=== PATIENT | female | born 1945 | race Caucasian/White ===

== ENCOUNTER → 2017-11-24 | Outpatient (CLI) | payer MEDICARE, OTHER ==
[~2017-11-24] VITALS: Ht 170.2 cm; Wt 64.1 kg
[~2017-11-24] MED LIST: ASPIRIN 81M81 MG/TA2 PO; ATROVENTNS0.03% NS; CLIMARA 0.1 PATCH.WK PO; DAYPRO 600600 MG PO; EPA FISH OIL1000 MG PO; ESTRACE0.5 MG PO; LUTEIN PO; MULTIPLE VITAMI1 TA5 PO; PHARMASSURE MA500 MG PO; RESTASIS0.05% OU; VITAMIN C500 MG PO
[2017-11-24 13:58] VITALS: BP 149/74; PULSE 63
[2017-11-24 15:20] VITALS: BP 149/83; PULSE 63
== END ==
LOC: COL.RAD 13:07
DX: M51.17 Intervertebral disc disorders with radiculopathy, lumbosacral region (principal)
CPT/HCPCS: J3301

== ENCOUNTER → 2018-03-07 | Outpatient (CLI) | payer MEDICARE, OTHER ==
[~2018-03-07] VITALS: Ht 170.2 cm; Wt 63.2 kg
[2018-03-07 12:06] VITALS: BP 154/68; PULSE 72
[2018-03-07 13:10] VITALS: BP 147/75; PULSE 65
== END ==
LOC: COL.RAD 11:45
DX: M51.16 Intervertebral disc disorders with radiculopathy, lumbar region (principal); M46.96 Unspecified inflammatory spondylopathy, lumbar region; M25.561 Pain in right knee; M25.562 Pain in left knee
CPT/HCPCS: J3301

== ENCOUNTER → 2018-03-24 | Outpatient (CLI) | payer MEDICARE, OTHER ==
[~2018-03-24] VITALS: Ht 167.6 cm; Wt 63.5 kg
[2018-03-24 07:19] VITALS: BP 122/64; PULSE 64
[2018-03-24 09:30] VITALS: BP 147/76; PULSE 65
== END ==
LOC: COL.RAD 07:00
DX: M54.17 Radiculopathy, lumbosacral region (principal); Z79.82 Long term (current) use of aspirin; Z79.899 Other long term (current) drug therapy
CPT/HCPCS: J3301

== ENCOUNTER → 2019-07-05 | Outpatient (CLI) | payer MEDICARE, OTHER ==
[~2019-07-05] VITALS: Ht 167.6 cm; Wt 63.6 kg
[~2019-07-05] MED LIST changes: +LUMIGAN 5 ML5 M1 OP
[2019-07-05 13:04] VITALS: BP 143/69; PULSE 63
[2019-07-05 14:00] VITALS: BP 142/74; PULSE 65
--- NOTE | 2019-07-05 14:27 | NUR ---
PT TAKEN BY WHEELCHAIR TO [facility]. PT'S SPOUSE DROVE CAR UP AND THEY LEFT
== END ==
LOC: COL.RAD 12:30
DX: M54.17 Radiculopathy, lumbosacral region (principal)
CPT/HCPCS: J3301

== ENCOUNTER → 2019-07-30 | Outpatient (CLI) | payer MEDICARE, OTHER ==
[~2019-07-30] VITALS: Ht 167.6 cm; Wt 67.0 kg
[2019-07-30 13:46] VITALS: BP 145/68; PULSE 65
[2019-07-30 14:20] VITALS: BP 132/80; PULSE 69
--- NOTE | 2019-07-30 14:35 | NUR ---
pt out to car per wheelchair. Pain unchanged. Pt able to bear weight and walk across floor without assistance. Pt up and into car without assistance.
== END ==
LOC: COL.RAD 13:30
DX: M54.17 Radiculopathy, lumbosacral region (principal)
CPT/HCPCS: J3301

== ENCOUNTER → 2019-09-07 | Outpatient (CLI) | payer MEDICARE, OTHER ==
[~2019-09-07] VITALS: Ht 167.6 cm; Wt 67.7 kg
[2019-09-07 13:29] VITALS: BP 162/88; PULSE 67
[2019-09-07 14:25] VITALS: BP 147/78; PULSE 65
--- NOTE | 2019-09-07 14:40 | NUR ---
pt out to car per wheelchair. Pt up and ambulates to car without difficulty.
== END ==
LOC: COL.RAD 13:00
DX: M54.17 Radiculopathy, lumbosacral region (principal)
CPT/HCPCS: J3301